=== PATIENT | female | born 1995 | race Caucasian/White ===

== ENCOUNTER 2017-02-21 01:48 | Emergency (ER) | payer OTHER ==
[2017-02-21] MEDS ORDERED: NS 1,000 ML IV ONE (02:36)
--- NOTE | 2017-02-21 02:36 | EDPHY ---
H & P Stated Complaint: RT LOWER ABDOMINAL PAIN X 3 DAYS Time Seen by Provider: 02/21/17 02:27 HPI/ROS: Chief Complaint: Abdominal pain HPI: 21-year-old female presenting with 3 days of right-sided abdominal pain. Started out as a dull pain but earlier yesterday became sharper and migrated to the right lower quadrant. Described as a pressure. At worst is an 8/10. Right now is a 6/10. Some nausea, no vomiting. No diarrhea. Does not have a history of the same. Last menstrual period was 3 weeks ago was normal. She is sexually active but uses oral control. No urinary urgency or frequency. ROS: 10 point Review of Systems is negative except as noted in the HPI. PMH: Asthma, anxiety, depression, back pain Medications: Oral contraceptives Allergies: Penicillin Social History: No smoking, occasional alcohol, occasional marijuana Family History: non-contributory Physical Exam: Gen: Awake, Alert, No Distress HEENT: Nose: no rhinorrhea Eyes: PERRLA, EOMI Mouth: Moist mucosa Neck: Supple, no JVD Chest: nontender, lungs clear to auscultation Heart: S1, S2 normal, no murmur Abd: Soft, she is tender right lower quadrant and tenderness greater at the right adnexa, no guarding Back: no CVA tenderness, no midline tenderness Ext: no edema, non-tender Skin: no rash Neuro: CN II-XII intact, Sensation grossly intact, Strength 5/5 in bilateral upper and lower extremities - Personal History LMP (Females 10-55): 15-21 Days Ago Current Tetanus/Diphtheria Vaccine: Yes Current Tetanus Diphtheria and Acellular Pertussis (TDAP): Yes - Medical/Surgical History Hx Asthma: Yes Hx Chronic Respiratory Disease: No Hx Diabetes: No Hx Cardiac Disease: No Hx Renal Disease: No Hx Cirrhosis: No Hx Alcoholism: No Hx HIV/AIDS: No Hx Splenectomy or Spleen Trauma: No Other PMH: ASTHMA, ANXIETY, DEPRESSION - Social History Smoking Status: Never smoked Constitutional: Initial Vital Signs Temperature (C) 37.7 C 02/21/17 01:58 Heart Rate 116 H 02/21/17 01:58 Respiratory Rate 18 02/21/17 01:58 Blood Pressure 124/80 H 02/21/17 01:58 O2 Sat (%) 95 02/21/17 01:58 O2 Delivery Mode Room Air Allergies/Adverse Reactions: penicillin V Allergy (Verified 02/21/17 02:01) Home Medications: Medication Instructions Recorded Velivet 28 Day Tablet 02/21/17 Medical Decision Making - Diagnostics Imaging Results: Abdominal ultrasound shows a nonvisualized appendix with there is a 2.5 x 2.2 cm cyst on the right ovary. No torsion. Small amount of fluid. ED Course/Re-evaluation: Abdominal ultrasound shows a 2.5 x 2.2 right ovarian cyst. No torsion. Appendix is not visualized. On reexamination the patient is definitely more tender in the right adnexa but then [place]. She is not . I have cautioned her that this does not exclude the possibility of acute appendicitis but makes that less likely. I have explained that the only with a CT scan completely rule this out. She understands the risks involved and would prefer not to have the radiation at this time. I think that this is reasonable. She will go home on anti-inflammatories. If the pain worsens she will return for further evaluation, otherwise she will follow up with [facility] for further evaluation. - Data Points Laboratory Results: Laboratory Results 02/21/17 02:17 02/21/17 02:17 02/21/17 02/21/17 02/21/17 02:17 02:17 02:17 WBC RBC Hgb Hct MCV MCH MCHC RDW Plt Count MPV Neut % (Auto) Lymph % (Auto) [place] % (Auto) Eos % (Auto) Baso % (Auto) Nucleat RBC Rel Count Absolute Neuts (auto) Absolute Lymphs (auto) Absolute Monos (auto) Absolute Eos (auto) Absolute Basos (auto) Absolute Nucleated RBC Immature Gran % Immature Gran # Sodium 142 mEq/L mEq/L (134-144) Potassium 3.8 mEq/L mEq/L (3.5-5.2) Chloride 106 mEq/L mEq/L (97-110) Carbon Dioxide 22 mEq/l mEq/l (22-31) Anion Gap 14 mEq/L mEq/L (8-16) BUN 9 mg/dL mg/dL (7-23) Creatinine 0.8 mg/dL mg/dL (0.6-1.0) Estimated GFR > 60 Glucose 114 mg/dL H mg/dL (70-100) Calcium 9.4 mg/dL mg/dL (8.5-10.4) Beta HCG, Qual NEGATIVE Urine Color YELLOW Urine Appearance CLEAR Urine pH 6.0 (5.0-7.5) Ur Specific [place] 1.006 (1.002-1.030) Urine Protein NEGATIVE (NEGATIVE) Urine Ketones NEGATIVE (NEGATIVE) Urine Blood NEGATIVE (NEGATIVE) Urine Nitrate NEGATIVE (NEGATIVE) Urine Bilirubin NEGATIVE (NEGATIVE) Urine Urobilinogen NEGATIVE EU EU (0.2-1.0) Ur Leukocyte Esterase NEGATIVE (NEGATIVE) Urine Glucose NEGATIVE (NEGATIVE) 02/21/17 02:17 WBC 10.69 10^3/uL H 10^3/uL (3.80-9.50) RBC 4.67 10^6/uL 10^6/uL (4.18-5.33) Hgb 13.6 g/dL g/dL (12.6-16.3) Hct 38.7 % % (38.0-47.0) MCV 82.9 fL fL (81.5-99.8) MCH 29.1 pg pg (27.9-34.1) MCHC 35.1 g/dL g/dL (32.4-36.7) RDW 11.9 % % (11.5-15.2) Plt Count 204 10^3/uL 10^3/uL (150-400) MPV 9.4 fL fL (8.7-11.7) Neut % (Auto) 80.0 % H % (39.3-74.2) Lymph % (Auto) 13.6 % L % (15.0-45.0) [place] % (Auto) 5.1 % % (4.5-13.0) Eos % (Auto) 0.8 % % (0.6-7.6) Baso % (Auto) 0.2 % L % (0.3-1.7) Nucleat RBC Rel Count 0.0 % % (0.0-0.2) Absolute Neuts (auto) 8.55 10^3/uL H 10^3/uL (1.70-6.50) Absolute Lymphs (auto) 1.45 10^3/uL 10^3/uL (1.00-3.00) Absolute Monos (auto) 0.55 10^3/uL 10^3/uL (0.30-0.80) Absolute Eos (auto) 0.09 10^3/uL 10^3/uL (0.03-0.40) Absolute Basos (auto) 0.02 10^3/uL 10^3/uL (0.02-0.10) Absolute Nucleated RBC 0.00 10^3/uL 10^3/uL (0-0.01) Immature Gran % 0.3 % % (0.0-1.1) Immature Gran # 0.03 10^3/uL 10^3/uL (0.00-0.10) Sodium Potassium Chloride Carbon Dioxide Anion Gap BUN Creatinine Estimated GFR Glucose Calcium Beta HCG, Qual Urine Color Urine Appearance Urine pH Ur Specific [place] Urine Protein Urine Ketones Urine Blood Urine Nitrate Urine Bilirubin Urine Urobilinogen Ur Leukocyte Esterase Urine Glucose Medications Given: Discontinued Medications Sodium Chloride (Ns) 1,000 mls @ 0 mls/hr IV ONCE ONE; Wide Open PRN Reason: Protocol Stop: 02/21/17 02:37 Last Admin: 02/21/17 02:52 Dose: 1,000 mls Departure - Departure Disposition: Home, Routine, Self-Care Clinical Impression: Ovarian cyst Condition: Good Instructions: Ovarian Cyst (ED) Additional Instructions: Return to the emergency department if pain worsens or is not improving. Follow up at [facility] in 2-3 days for further evaluation. You may take ibuprofen 600 mg 3 times a day as needed for pain. You also may take acetaminophen 1000 mg every 6 hours. Referrals: [facility],. [Clinic] - As per Instructions
[2017-02-21 03:22] LABS: PLATELET COUNT 204 10^3/uL (150-400)
[2017-02-21] MEDS ORDERED: KETOROLAC 15 MG/1 ML SDV ONE (04:11)
[2017-02-21] MEDS ORDERED: KETOROLAC 15 MG/1 ML SDV IVP ONE (04:11)
[2017-02-21 04:15] VITALS: BP 120/74; PULSE 98; RESP 16; TEMP 98.4; O2SAT 98
== END 2017-02-21 04:30 | disposition home or self-care (01) ==
DX: N83.201 Unspecified ovarian cyst, right side (principal); J45.909 Unspecified asthma, uncomplicated; E86.9 Volume depletion, unspecified
CPT/HCPCS: 96374; J1885